=== PATIENT | female | born 1975 | race Caucasian/White ===

== ENCOUNTER 2019-01-30 12:18 | Inpatient (IN) | payer MEDICAID ==
[~2019-01-30] VITALS: Ht 152.4 cm; Wt 71.7 kg
[2019-01-30 12:23] VITALS: Ht 152.4 cm; Wt 71.7 kg
[2019-01-30 13:11] LABS: CALCIUM 9.3 mg/dL (8.5-10.1); CARBON DIOXIDE 27.3 mmol/L (21-32); CHLORIDE SERUM 103 mmol/L (98-107); CREATININE SERUM 0.7 mg/dL (0.6-1.0); GFR1 > 60 mL/min; GLUCOSE SERUM 98 mg/dL (74-106); SODIUM SERUM 140 mmol/L (136-145)
[2019-01-30 13:15] LABS: ALBUMIN 3.8 g/dL (3.4-5.0); ALKALINE PHOSPHATASE 108 U/L (46-116); ALT/SGPT 23 U/L (14-59); AST/SGOT 12 U/L (15-37); BILIRUBIN TOTAL 0.92 mg/dL (0.20-1.00); LIPASE 80 IU/L (73-393)
[2019-01-30 13:19] LABS: BASOPHIL % 0.3 % (0-2); PLATELET COUNT 323 x10^3mcL (130-400); RED CELL DISTRIBUTION WIDTH 12.6 % (11.5-14.5)
--- NOTE | 2019-01-30 13:27 | NUR ---
REC'D A 43/F IN RM 15 WITH C/O SUPRAPUBIC PAIN X 1 WEEK, PAIN RADIATES TO EPIGASTRIC PAIN YESTERDAY, THEN TO RIGHT SHOULDER. PT REPORTS NAUSEA, DENIES VOMITING OR FEVER. PT AAOX4, CLEAR SPEECH, RESP E/U, TENDERNESS UPON PALPATION TO ALL QUADRANT, PT IN MILD DISTRESS.
--- NOTE | 2019-01-30 14:05 | NUR ---
LAB AT BEDSIDE FOR BLOOD DRAW
--- NOTE | 2019-01-30 15:10 | NUR ---
PT REPORTS FEELING BETTER. NO LONGER TEARFUL. CALL LIGHT REMAINS IN REACH
--- NOTE | 2019-01-30 16:09 | NUR ---
REPORT GIVEN TO JIE
--- NOTE | 2019-01-30 16:39 | NUR ---
RECEIVED PT VIA [employer] FROM E/D, ACCOMPANIED BY TRANSPORTER AND PT'S SIGNIFICANT OTHER, BRITTA PENDLETON. PT A/A/O X 4, CALM, COOPERATIVE; SPEAKS [place] ONLY, MR PENDLETON FOR TRANSLATION. AMBULATORY, NO GAIT OR BALANCE IMPAIRMENT NOTED WHEN WALKING FROM GURNEY TO BED. DENIES CHEST PAIN OR DISCOMFORT AT THIS TIME. SCD BY BEDSIDE. NO ACUTE RESPIRATORY DISTRESS NOTED. ABD SOFT, ROUND, NON-TENDER, NORMOACTIVE BOWEL SOUNDS X 4 QUADS, LAST BM 01/30/19, FORMED. VOIDS FREELY, STATES HAS DYSURIA. IV SITE RH 22G, CDI. ORIENTED PT AND S/O TO ROOM, BED CONTROLS, CALL LIGHT SYSTEM. SIDE RAILS UP X 2, BED IN LOW POSITION. WILL ENDORSE TO [facility] RAMOS.
[2019-01-30 16:55] VITALS: BP 122/77
--- NOTE | 2019-01-30 19:05 | NUR ---
PT RESTING IN BED COMFORTABLY. DENIES ANY PAIN. STABLE. GAVE REPORT TO CURRICULUM DEVELOPMENT SPECIALIST NURSE.
--- NOTE | 2019-01-30 19:20 | NUR ---
RECEIVED PT IN BED AWAKE, ALERT,ORIENTED X4. LUNGS CTA. NO SOB ON ROOM AIR. BOWEL SOUNDS ACTIVE. ABDOMEN IS ROUND AND SOFT. SHE IS C/O ABDL PAIN 03/07. SHE DENIED HAVING N/V AT THIS TIME. W/ IVF NS AT 70 CC/HR VIA RT HAND. CALL LIGHT W/IN REACH.
--- NOTE | 2019-01-30 19:31 | NUR ---
PT C/O ABDL PAIN 03/07. TORADOL 15 MG IV GIVEN.
[2019-01-30 20:39] VITALS: BP 102/65
--- NOTE | 2019-01-31 01:15 | NUR ---
PT APPEARS TO BE SLEEPING COMFORTABLY.
--- NOTE | 2019-01-31 02:05 | NUR ---
PT C/O ABDL PAIN 01/05. TYLENOL 650 MG PO GIVEN (TORADOL NOT DUE AT THIS TIME).
--- NOTE | 2019-01-31 03:08 | NUR ---
PT STILL C/O ABDL PAIN 01/05 AND VERBALIZED NO RELIEF FROM TYLENOL. PT MEDICATED W/ TORADOL 15 MG IV.
--- NOTE | 2019-01-31 05:07 | NUR ---
PT SLEPT FAIRLY. SHE WAS MEDICATED FOR ABDL PAIN X3. NO EPISODE OF N/V. PT HAD NO BM THIS SHIFT. W/ IVF NS AT 70 CC/HR VIA RT HAND. DUE IV ABX GIVEN.
[2019-01-31 06:09] VITALS: BP 97/47
[2019-01-31 06:20] LABS: CALCIUM 7.7 mg/dL (8.5-10.1); CARBON DIOXIDE 24.6 mmol/L (21-32); CHLORIDE SERUM 108 mmol/L (98-107); CREATININE SERUM 0.6 mg/dL (0.6-1.0); GFR1 > 60 mL/min; GLUCOSE SERUM 97 mg/dL (74-106); POTASSIUM SERUM 3.4 mmol/L (3.5-5.1); SODIUM SERUM 142 mmol/L (136-145)
[2019-01-31 06:24] LABS: BASOPHIL % 0.3 % (0-2); PLATELET COUNT 270 x10^3mcL (130-400); RED CELL DISTRIBUTION WIDTH 12.7 % (11.5-14.5)
--- NOTE | 2019-01-31 07:55 | NUR ---
RECEIVED PT. IN BED A/A/O X3. NO SOB, NO N/V NOTED. PT. DENIES ANY PAIN AT THIS TIME. NS RUNNING AT 70 CC/HR VIA IV SITE AT R HAND. SCD TO BLE MAINTAINED. BED IN LOW POS., CALL LIGHT WITHIN REACH. SIDE RAILS UP X3.
--- NOTE | 2019-01-31 08:00 | NUR ---
REPORT GIVEN TO AM NURSE.
[2019-01-31 08:20] VITALS: BP 101/52
--- NOTE | 2019-01-31 14:38 | NUR ---
Discount pharmacy card and list to low cost medical clinics given to patient by Elie Desai.
[2019-01-31 17:06] VITALS: BP 131/77
--- NOTE | 2019-01-31 19:30 | NUR ---
REMAINS IN STABLE CONDITION AT THIS TIME. WILL CONTINUE TO MONITOR.
--- NOTE | 2019-01-31 19:40 | NUR ---
Awake and verbally responsive. No respiratory distress noted on room air. Denies pain. Denies n/v. Denies diarrhea. Will cont.to monitor. Call light within reach.
[2019-01-31 20:45] VITALS: BP 109/64
--- NOTE | 2019-02-01 04:19 | NUR ---
Resting in bed. Afebrile. No significant change in condition noted. pain controlled. Denies n/v. Cont.on IV zosyn. Ambulating.
[2019-02-01 05:43] VITALS: BP 111/69
[2019-02-01 06:45] LABS: BASOPHIL % 0.3 % (0-2); PLATELET COUNT 286 x10^3mcL (130-400); RED CELL DISTRIBUTION WIDTH 13.2 % (11.5-14.5)
[2019-02-01 06:54] LABS: CALCIUM 8.3 mg/dL (8.5-10.1); CARBON DIOXIDE 26.2 mmol/L (21-32); CHLORIDE SERUM 106 mmol/L (98-107); CREATININE SERUM 0.6 mg/dL (0.6-1.0); GFR1 > 60 mL/min; GLUCOSE SERUM 98 mg/dL (74-106); SODIUM SERUM 140 mmol/L (136-145)
--- NOTE | 2019-02-01 07:25 | NUR ---
RECEIVED PT FROM [employer] AND [employer]OES SUPERVISOR. PT AWAKE, ALERT A/OX4. PT ON ROOM AIR WITH NO RESP DISTRESS NOTED. IV ACCESS RIGHT HAND, CDI INFUSING NS AT 70ML/HR. PERIPHERAL PULSES PALPABLE, NO EDEMA NOTED. ACTIVE BS NOTED. PT DENIES ANY ISSUES WITH ELIMINATION AT THIS TIME. PT COMPLAINING OF PAIN IN ABDOMEN 5/10 AT THIS TIME BUT TOLERABLE TO PATIENT. PT ABLE TO AMBULATE WITH NO WEAKNESS NOTED. SAFETY MEASURES IN PLACE, BED LOW AND LOCKED, CALL LIGHT WITHIN REACH.
[2019-02-01] MEDS ORDERED: FLA500 PO (08:39)
[2019-02-01] MEDS ORDERED: GOOD SENSE OMEP20 MG PO (08:39)
[2019-02-01 08:41] VITALS: BP 124/78
[2019-02-01] MEDS ORDERED: MECLIZINE TRAVE25 MG PO (08:43)
--- NOTE | 2019-02-01 09:17 | NUR ---
PT COMPLAINING OF DIZZINESS, BOILER RIVETER AWARE. NEW MED ORDERED AND ADMINISTERED (SEE EMAR) PT COMPLAINING OF PAIN TO ABDOMEN 09/05 AT THIS TIME. TYLENOL ADMINISTERED ORDERED, WILL CONTINUE TO MONITOR.
--- NOTE | 2019-02-01 10:17 | NUR ---
PT LYING IN BED WITH NO DISCOMFORT NOTED. PT REPORTS RELIEF FROM PAIN AT THIS TIME AFTER ADMINISTRATION OF TYLENOL. WILL MONITOR.
[2019-02-01 11:39] VITALS: BP 124/78
--- NOTE | 2019-02-01 12:27 | NUR ---
PT DISCHARGE INSTRUCTIONS PROVIDED TO PATIENT/ FAMILY. PT TO FOLLOW UP WITH APPT PROVIDED. PT GIVEN NEW PRESCRIPTIONS. PT AND FAMILY VERBALIZED UNDERSTANDING. IV ACCESS REMOVED WITH CATHETER INTACT. NO BLEEDING, REDNESS OR SWELLING NOTED. PT TO BE TAKEN BY WHEELCHAIR TO [employer]IVATE [employer] FOR DISCHARGE. SAFETY MAINTAINED.
== END 2019-02-01 12:50 | disposition home or self-care (01) | DRG 244 ==
LOC: ED 12:18 → MU 15:32
PROVIDERS: ADMIT Internal Medicine
DX: K57.32 Diverticulitis of large intestine without perforation or abscess without bleeding (principal); N39.0 Urinary tract infection, site not specified; Z68.27 Body mass index [BMI] 27.0-27.9, adult
CPT/HCPCS: G0378; J1885; J2543; J3010; J7030; J8597

== ENCOUNTER 2019-10-04 11:55 | Emergency (ER) | payer MEDICAID ==
[~2019-10-04] VITALS: Ht 154.9 cm; Wt 73.0 kg
[~2019-10-04 11:55] MED LIST: FLA500 PO; GOOD SENSE OMEP20 MG PO; MECLIZINE TRAVE25 MG PO
[2019-10-04 12:01] VITALS: Ht 154.9 cm; Wt 73.0 kg
[2019-10-04 14:10] VITALS: BP 128/71
== END 2019-10-04 14:10 | disposition home or self-care (01) ==
LOC: ED 11:55
DX: S52.122A Displaced fracture of head of left radius, initial encounter for closed fracture (principal); W17.89XA Other fall from one level to another, initial encounter; Y93.89 Activity, other specified; Y92.89 Other specified places as the place of occurrence of the external cause; Y99.8 Other external cause status
CPT/HCPCS: J1885; J2270; Q0092; Q0162